=== PATIENT | male | born 1935 | race Caucasian/White ===

== ENCOUNTER 2023-04-26 15:23 | Emergency (ER) | payer OTHER, MEDICARE ==
[2023-04-26] MEDS: Acetaminophen 325 MG Tab PO STA (19:31)
== END 2023-04-26 19:46 | disposition home or self-care (01) ==
LOC: JP.ED 15:23
DX: M54.50 Low back pain, unspecified (principal); M54.6 Pain in thoracic spine; K21.9 Gastro-esophageal reflux disease without esophagitis; Z79.82 Long term (current) use of aspirin; Z79.899 Other long term (current) drug therapy; Z87.891 Personal history of nicotine dependence; Z90.49 Acquired absence of other specified parts of digestive tract; W19.XXXA Unspecified fall, initial encounter
CPT/HCPCS: 72125; 72128; 72131; 73030; 73700; 76377; 99283; 99284; A9270

== ENCOUNTER 2025-02-05 11:53 | Inpatient (IN) | payer MEDICARE, OTHER ==
[2025-02-05 12:16] LABS: BASOPHILS ABSOLUTE AUTO 0.04 K/uL (0.00-0.10); BASOPHILS PERCENT AUTO 0.8 % (0.1-1.3); EOSINOPHILS ABSOLUTE AUTO 0.25 K/uL (0.00-0.40); EOSINOPHILS PERCENT AUTO 5.0 % (0.0-5.4); IMMATURE GRAN PERCENT AUTO 0.2 % (0.0-0.7); LYMPHOCYTES ABSOLUTE AUTO 1.87 K/uL (0.8-3.3); LYMPHOCYTES PERCENT AUTO 37.5 % (11.4-47.7); MONOCYTES ABSOLUTE AUTO 0.34 K/uL (0.20-0.90); MONOCYTES PERCENT AUTO 6.8 % (3.3-12.6); NEUTROPHILS ABSOLUTE AUTO 2.48 K/uL (1.0-7.6); NEUTROPHILS PERCENT AUTO 49.7 % (40.0-78.1); PLATELET COUNT,PLT 114 K/uL (130-375); RED BLOOD CELL COUNT 3.30 M/uL (4.14-5.76); WHITE BLOOD CELL COUNT,WBC 5.0 K/uL (3.2-11.0)
[2025-02-05 12:48] LABS: A/G RATIO 0.7 (1.2-2.2); ALANINE AMINOTRANSFERASE,ALT 19 U/L (12-78); ASPARTATE AMNIOTRANSFERASE,AST 20 U/L (15-37); BILIRUBIN TOTAL 0.6 mg/dL (0.2-1.0); BLOOD UREA NITROGEN,BUN 22 mg/dL (7-18); CARBON DIOXIDE,CO2 27 mmol/L (21-32); CHLORIDE,CL 105 mmol/L (100-108); CREATININE 1.2 mg/dL (0.8-1.3); ESTIMATED GFR 58 mL/min (>60); GLUCOSE RANDOM 111 mg/dL (74-106); POTASSIUM,K 3.8 mmol/L (3.6-5.2); PROTEIN TOTAL,TP 7.4 g/dL (6.4-8.2); SODIUM,NA 139 mmol/L (140-148); TSH ULTRASENSITIVE 2.353 uIU/mL (0.358-3.740)
[2025-02-05 12:53] LABS: PRO B-TYPE NATRIUR PEPT,BNPPRO 572.0 pg/mL (5-450)
[2025-02-05 13:01] LABS: BASE EXCESS VENOUS 1.0 mm/L; BICARBONATE,VENOUS 25.0 mmol/L; O2 SATURATION VENOUS 46.5; OXYHEMOGLOBIN 45.3 %; PCO2 VENOUS 40.1 mm/Hg; PH,VENOUS 7.412 (7.350-7.450); TOTAL HEMOGLOBIN 10.2 g/dL (13.5-18.0)
[2025-02-05 13:02] LABS: PO2 VENOUS 31.4 mm/Hg
[2025-02-05 13:07] LABS: IMMATURE GRAN ABSOLUTE AUTO 0.01 K/uL (0.00-0.23)
[2025-02-05 13:11] LABS: CORONAVIRUS COVID-19 NAA NEGATIVE (NEGATIVE); INFLUENZA A NAA NEGATIVE (NEGATIVE); INFLUENZA B NAA NEGATIVE (NEGATIVE); RESPIRATORY SYNCYTIAL VIR NAA NEGATIVE (NEGATIVE)
[2025-02-05 13:20] LABS: APPEARANCE,URINE CLOUDY (CLEAR); GLUCOSE,URINE NEGATIVE (NEGATIVE); OCCULT BLOOD,URINE NEGATIVE (NEGATIVE)
[2025-02-05 13:38] LABS: SQUAMOUS EPITHELIAL CELLS,UR NOT SEEN /HPF
[2025-02-05] MEDS ORDERED: Ondansetron 4 MG/2 ML SDV IV PRN (16:13)
[2025-02-05] MEDS ORDERED: Sodium Chloride 0.9% 10 ML Syringe FLUSH PRN (16:13)
[2025-02-05] MEDS ORDERED: Albuterol 0.083% 2.5 MG/3 ML Neb Soln NEB PRN (16:13)
[2025-02-05] MEDS ORDERED: Non-Formulary Medication 1 Each (Lidocaine 5% [Lidoderm 5%] 700 MG Patch) TOP PRN (16:13)
[2025-02-05] MEDS ORDERED: [UNRECOGNIZED DRUG - REMARK] TRDERM PRN (21:00)
[2025-02-05] MEDS: Azelastine Nasal Soln 30 ML Spray Bottle NASBOTH SCH (21:12)
[2025-02-05] MEDS: Fluticasone NASAL Spray 16 GM Bottle NASBOTH SCH (21:13)
[2025-02-06 05:59] LABS: PLATELET COUNT,PLT 107.0 K/uL (130-375); RED BLOOD CELL COUNT 3.19 M/uL (4.14-5.76); WHITE BLOOD CELL COUNT,WBC 5.0 K/uL (3.2-11.0)
[2025-02-06 06:14] LABS: BLOOD UREA NITROGEN,BUN 21.0 mg/dL (7-18); CARBON DIOXIDE,CO2 25.0 mmol/L (21-32); CHLORIDE,CL 108.0 mmol/L (100-108); CREATININE 1.1 mg/dL (0.8-1.3); EST CRCL DRUG DOSING (CG) 45.53 mL/min; ESTIMATED GFR 64.0 mL/min (>60); GLUCOSE RANDOM 92.0 mg/dL (74-106); POTASSIUM,K 3.7 mmol/L (3.6-5.2); SODIUM,NA 142.0 mmol/L (140-148)
[2025-02-06] MEDS: FLU (Fluad Triv) 25-26 (65UP)/MF59C/PF 45 MCG/0.5 ML Syringe IM ONE (10:22)
== END 2025-02-08 12:03 | disposition home or self-care (01) | DRG 690 ==
LOC: JP.ED 11:53 → JP.MS 15:03 → OBSVTOIN 02-06 12:31
PROVIDERS: ADMIT Hospitalist; ATTEND Hospitalist
DX: R62.7 Adult failure to thrive (principal); N39.0 Urinary tract infection, site not specified; R41.0 Disorientation, unspecified; D64.9 Anemia, unspecified; D69.6 Thrombocytopenia, unspecified; R54 Age-related physical debility; N30.00 Acute cystitis without hematuria; E86.0 Dehydration; I50.9 Heart failure, unspecified; K21.9 Gastro-esophageal reflux disease without esophagitis; N40.0 Benign prostatic hyperplasia without lower urinary tract symptoms; Z66 Do not resuscitate; E03.9 Hypothyroidism, unspecified; G89.29 Other chronic pain; Z96.649 Presence of unspecified artificial hip joint; Z96.659 Presence of unspecified artificial knee joint; B96.20 Unspecified Escherichia coli [E. coli] as the cause of diseases classified elsewhere; Z79.1 Long term (current) use of non-steroidal anti-inflammatories (NSAID); Z79.82 Long term (current) use of aspirin; Z79.2 Long term (current) use of antibiotics; Z79.890 Hormone replacement therapy; Z79.899 Other long term (current) drug therapy; Z98.49 Cataract extraction status, unspecified eye; Z95.2 Presence of prosthetic heart valve; Z98.890 Other specified postprocedural states; Z90.49 Acquired absence of other specified parts of digestive tract
CPT/HCPCS: 36415 ×2; 70450 ×2; 71046 ×2; 80048; 80053; 81001; 82803; 83605; 83880; 84443; 85025; 85027; 86140; 87086; 87088; 87186; 87637; 90653; 93005; 93010; 96361; 96365; 97161; 99223; 99285 ×2; J0696; J1650; J7040; 96372; 97110-GP; 97530-GP; 99232; 99233; 99238; A9270-GY; G0008; G0378